=== PATIENT | female | born 1980 | race Caucasian/White ===

== ENCOUNTER → 2019-11-06 14:35 | Outpatient (CLI) | payer OTHER, SELFPAY ==
--- NOTE | 2019-11-06 14:40 | US_ITS ---
PROCEDURE: US TRANSVAGINAL CLINICAL INDICATION: pelvic pain COMPARISON: PTV US PELVIS-TRANSVAGINAL ONLY from 03/18/2014 FINDINGS: UTERUS: 9cm x 6cmx 5cm with a combined endometrial thickness of 13.6mm LEFT OVARY: 8pmd9max5.5cm with a volume of 31.8ml. RIGHT OVARY: [id number] with a volume of 18.4ml. The uterus has a bulky configuration. The endometrium is thickened at 14 mm.. There is a small amount fluid within the endometrium measuring 3 mm in thickness there is a 2.5 cm simple appearing cyst of the left ovary. An additional 3.3 x 1.7 cm cyst is present in the left ovary with low level echoes. Right ovary has an unremarkable appearance. There is bilateral ovarian blood flow. Minimal fluid noted in the cul-de-sac IMPRESSION: 1. Bulky uterus with thickened endometrium and minimal fluid in the cul-de-sac 2. There are 2 left ovarian cyst 1 of which is simple in 1 of which is complex with low level echoes measuring 2.5 and 3.3 cm respectively Dictated by: Arias Mathews MD 11/06/2019 18:33 Electronically signed by Arias Mathews MD in [place] 11/06/2019 18:33
== END ==
PROVIDERS: PCP Physician Assistant; Visit Provider Obstetrics & Gynecology
DX: R10.2 Pelvic and perineal pain (principal)
CPT/HCPCS: 76830

== ENCOUNTER 2022-07-13 12:33 | Emergency (ER) | payer BC, MEDICAID, SELFPAY ==
[2022-07-13 12:40] VITALS: BP 136/89; PULSE 75; RESP 19; TEMP 36.6; O2SAT 99; BMI 29.0
--- NOTE | 2022-07-13 12:51 | EXP.UTC ---
Discharge Plan Disposition Patient Disposition: Home, Self-Care Condition: Good Prescriptions Prescriptions: New cyclobenzaprine 10 mg tablet 10 mg PO TID PRN (Reason: muscle spasm) Qty: 15 0RF etodolac 200 mg capsule 200 mg PO Q8H PRN (Reason: pain) Qty: 20 0RF Referrals Follow up/Referrals: Carloz Chicas MD [Primary Care Provider] - See instructions Activity Restrictions/Add. Instructions Additional Instructions/Restrictions: *Etodolac rasheed 8 hours with meal as needed for pain/inflammation *Remember you had a Toradol shot in the clinic today, which is similar to Etodolac so do not take for the next 8 hrs *Not additional anti-inflammatory like Ibuprofen, motrin, aleve, advil with the above amount of Etodolac. You can still take Tylenol every 4 hours as needed if you need something else for pain *Ice 20 minutes every 2 hours for the first 48 hours after the initial injury followed by moist heat every 20 minutes 3-4 times a day to affected area *Muscle relaxer every 8 hours as needed for muscle spasms but remember, it WILL cause drowsiness You cannot take it and drive, operate machinery or care for small children. *Keep this area active, no movement leads to more stiffness, However take it easy and avoid heavy lifting pushing or pulling *Follow up with you family doctor if no improvement for further treatment Clinical Impressions Clinical Impression: Low back pain Qualifiers: Chronicity: unspecified Back pain laterality: midline Sciatica presence: unspecified whether sciatica present Qualified Code(s): M54.50 - Low back pain, unspecified Stand Alone Forms Stand Alone Forms: Work/School Release Instructions Patient Instructions: Low Back Pain, DI for Muscle Spasm Discharge ED Provider: Mavis Mas [facility] General Stated complaint: back pain, no accident Time Seen by Provider: 07/13/22 12:51 History of Present Illness Provider Complaint: Patient states that about a week ago she bent over at home and felt a pull in her lower back area States that she woke up the next morning and was sore in her lower back and having spasms States that since then she has tried OTC pain patches and they have not helped States that she is still having spasms and pain with certain movements Denies falling Denies fever denies pain or difficulty with urination Denies loss of control of bowel or bladder Related Data Previous Rx's Medication Instructions Recorded cyclobenzaprine 10 mg tablet 10 mg PO TID PRN muscle spasm #15 07/13/22 tabs etodolac 200 mg capsule 200 mg PO Q8H PRN pain #20 caps 07/13/22 Allergies Allergy/AdvReac Type Severity Reaction Status Date / Time No Known Allergies Allergy Verified 11/12/19 09:48 [facility] Disclaimer: The information contained in this section may have been updated after the patient was seen, as this information can be updated by other users. Social History Smoking Status: Current every day smoker alcohol intake: never substance use type: denies use current occupational status: employed Travel in the last 8 weeks: None ROS Obtained: Yes All systems reviewed & no additional complaints except as documented and Yes Systems reviewed as appropriate & no additional complaints except as documented Constitutional Constitutional: Reports system reviewed and no additional complaints, except as documented, Reports as per HPI, Denies body ache, Denies chills and Denies fever(s) ENT Ears, Nose, Mouth, and Throat: Reports system reviewed and no additional complaints, except as documented and Reports as per HPI Cardiovascular Cardiovascular: Reports system reviewed and no additional complaints, except as documented and Reports as per HPI Respiratory Respiratory: Reports system reviewed and no additional complaints, except as documented and Reports as per HPI Gastrointestinal Gastrointestingal: Reports system reviewed and no additional complaints, except as documented and as
[2022-07-13 13:09] VITALS: BP 136/89; PULSE 75; RESP 19; TEMP 36.6; O2SAT 99
== END 2022-07-13 13:27 | disposition home or self-care (01) ==
PROVIDERS: Emergency Provider Nurse Practitioner; PCP Emergency Medicine
DX: M54.50 Low back pain, unspecified (principal)
CPT/HCPCS: 96372; 99212; 99214; G0463